=== PATIENT | female | born 1950 | race Caucasian/White ===

== ENCOUNTER → 2016-07-22 | Outpatient (CLI) | payer MEDICARE, OTHER ==
[~2016-07-22] MED LIST: ASPI81TA82 PO; CO Q100C9 OR; FISH1000 PO; SIMV80TA OR; TAB-TAB PO
[2016-07-22 09:08] LABS: HEMATOCRIT 41.4 % (35.0-46.0); MEAN CELL VOLUME 94.6 FL (80.0-100.0); MEAN CORPUSCULAR HEMOGLOBIN 31.4 PG (27.0-34.0); MEAN CORPUSCULAR HGB CONC 33.2 % (32.0-36.0); PLATELET COUNT 226 TH/MM3 (150-450); RED BLOOD COUNT 4.38 MIL/MM3 (4.00-5.30); RED CELL DISTRIBUTION WIDTH 13.4 % (11.6-17.2); REVIEW FLAG FINAL; WHITE BLOOD COUNT 4.2 TH/MM3 (4.0-11.0)
[2016-07-22 09:51] LABS: ALKALINE PHOSPHATASE 50 U/L (45-117); ALT (GPT) 26 U/L (10-53); ANION GAP 8 MEQ/L (5-15); AST (GOT) 20 U/L (15-37); BICARBONATE 29.5 MEQ/L (21.0-32.0); BLOOD UREA NITROGEN 23 MG/DL (7-18); CHLORIDE 104 MEQ/L (98-107); GLOMERULAR FILTRATION RATE 66 ML/MIN (>89); GLUCOSE,FASTING 116 MG/DL (74-99); HDL CHOLESTEROL 63.8 MG/DL (40.0-60.0); LDL CHOLESTEROL 114 MG/DL (0-99); POTASSIUM 5.2 MEQ/L (3.5-5.1); SODIUM (NA) 141 MEQ/L (136-145); TOTAL BILIRUBIN ADULT 0.5 MG/DL (0.2-1.0)
[2016-07-22 11:15] LABS: BACTERIA, URINE OCC /hpf; BLOOD, URINE NEG (NEG); GLUCOSE,URINE NEG (NEG); KETONE, URINE NEG (NEG); NITRITE,URINE NEG (NEG); SQUAMOUS EPITHELIAL CELL URINE 4 /hpf (0-5); URINE COLOR YELLOW (YELLW/STRAW)
== END ==
LOC: PLAB 07:04
PROVIDERS: ATTEND General Practice
DX: E78.00 Pure hypercholesterolemia, unspecified (principal); I10 Essential (primary) hypertension
CPT/HCPCS: 36415; 80053; 80061; 81001; 84443; 85027

== ENCOUNTER → 2016-08-08 | Outpatient (CLI) | payer MEDICARE, OTHER ==
--- NOTE | 2016-08-09 17:51 | EKG ---
Date Performed: 08/08/2016 Time Performed: 16:16:42 PTAGE: 66 years EKG: Sinus rhythm WITH SINUS ARRHYTHMIA NORMAL ECG NO PREVIOUS TRACING DOCTOR: Cheryl Purcell Interpretating Date/Time 08/09/2016 17:49:42
== END ==
LOC: HCAV 15:39
PROVIDERS: ATTEND General Practice
DX: I49.8 Other specified cardiac arrhythmias (principal)
CPT/HCPCS: 93005

== ENCOUNTER 2016-10-11 07:22 | Emergency (ER) | payer OTHER, MEDICARE ==
[~2016-10-11] VITALS: Ht 170.2 cm; Wt 77.0 kg
[2016-10-11 07:28] VITALS: BP 172/88; PULSE 61; RESP 19; TEMP 97.8; O2SAT 95
[2016-10-11] MEDS ORDERED: LIDOCAINE HCL 1% 50 ML VIAL INFIL ONE (07:30)
[2016-10-11] MEDS ORDERED: TETANUS/DIPHTHERIA TOXOID ADULT 0.5 ML VIAL IM ONE (07:30)
[2016-10-11] MEDS ORDERED: oxyCODONE/ACETAMINOPHEN 5 MG/325 MG TAB PO ONE (07:30)
--- NOTE | 2016-10-11 07:31 | PD ---
HPI Chief Complaint: Fall Time Seen by Provider: 07:26 Travel History International Travel<30 days: No Contact w/Intl Traveler<30days: No History of Present Illness HPI This is a 66-year-old female who was walking to work this morning when she tripped and fell on the concrete. She hit her head. She did not lose consciousness. She has a headache on the left side of her head, constant, moderate severity. She did not vomit. She is also reporting moderate severity left shoulder pain, constant, with difficulty moving her shoulder. She has some paresthesias in her left hand. She says she takes a baby aspirin every day. 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) Immunizations Current: No Tubal Ligation: Yes Past Surgical History Appendectomy: Yes Oral Surgery: Yes (TEETH EXTRACTION) Social History Alcohol Use: No Tobacco Use: No Substance Use: No Allergies-Medications (Allergen,Severity, Reaction): Coded Allergies: No Known Allergies (Verified , 10/11/16) Reported Meds & Prescriptions Reported Meds & Active Scripts Active Reported Multi Vitamin Daily (Multiple Vitamin) 1 Tab Tab Co Q 10 (Coenzyme Q10 (Ubidecarenone)) 100 Mg Cap Fish Oil + D3 (Fish Oil-Cholecalciferol) 1,200-1,000 Mg-Unit Cap 1 Cap PO DAILY Simvastatin 20 Mg Tab 20 Mg PO DAILY Metoprolol Tartrate 25 Mg Tab 25 Mg PO DAILY Aspirin 81 Mg Chew 81 Mg CHEW DAILY Review of Systems Except as stated in HPI: all other systems reviewed are Neg Physical Exam Narrative GENERAL:Well appearing, no acute distress SKIN: 4 cm laceration along the left forehead extending into the left eyebrow HEAD: Atraumatic. Normocephalic. EYES: Pupils equal and round. No injection or drainage. ENT: Moist mucous membranes NECK: Trachea midline. CARDIOVASCULAR: Regular rate and rhythm. No murmur appreciated. 2+ left radial pulse. RESPIRATORY: Clear to auscultation. Breath sounds equal bilaterally. GASTROINTESTINAL: Abdomen soft, non-tender, nondistended. MUSCULOSKELETAL: Tender to palpation over the left proximal humerus, unable to range the glenohumeral joint without severe pain. NEUROLOGICAL: Awake and alert. No obvious cranial nerve deficits. Moving all extremities. Sensation and motor intact in the left median, ulnar and radial distribution of the left forearm PSYCHIATRIC: Appropriate mood and affect; insight and judgment normal. Data Data Last Documented VS Vital Signs Date Time Temp Pulse Resp B/P Pulse Ox O2 Delivery O2 Flow Rate FiO2 10/11/16 09:40 84 18 159/84 99 Room Air 10/11/16 07:[address] Brain W/O Iv Contrast(Rout) (10/11/16 ) Shoulder, Limited(2vws) (10/11/16 ) Humerus (Min 2vws) (10/11/16 ) Oxycodone-Acetamin 5-325 Mg (Percocet (10/11/16 07:30) Lidocaine 1% Inj (50 Ml) (Xylocaine 1% I (10/11/16 07:30) Tetanus/Diphtheria Tox Adult (Tetanus/Di (10/11/16 07:30) Ct Cerv Spine W/O Contrast (10/11/16 ) Sling Cradle Arm (10/11/16 ) Ibuprofen (Motrin) (10/11/16 09:45) Splint Or Brace Apply/Monitor (10/11/16 09:31) MDM Medical Decision Making Medical Screen Exam Complete: Yes Emergency Medical Condition: Yes Interpretation(s) Afebrile, no tachycardia, hypertensive Last 24 hours Impressions Shoulder X-Ray 10/11/16 0000 Signed Impressions: Service Date/Time: Tuesday, October 11, 2016 08:03 - CONCLUSION: Slightly impacted and minimally displaced humeral head/neck fracture Marv Segura MD Humerus X-Ray 10/11/16 0000 Signed Impressions: Service Date/Time: Tuesday, October 11, 2016 08:09 - CONCLUSION: Proximal humeral neck fracture Marv Segura MD Head CT 10/11/16 0000 Signed Impressions: Service Date/Time: Tuesday, October 11, 2016 07:50 - CONCLUSION: 1. Left frontal scalp soft tissue swelling. No fracture or acute intracranial abnormality is identified. 2. Nonacute findings include mild atrophy and periventricular white matter low attenuation characteristic of chronic microvascular ischemia. Marv Herrera MD Cervical Spine CT 10/11/16 0000 Signed Impressions: Service Date/Time: Tuesday, October 11, 2016 07:50 - CONCLUSION: No acute bony injury in the cervical spine Marv Segura MD Differential Diagnosis Humeral neck fracture, humeral head fracture, shoulder dislocation, intracranial hemorrhage, cervical spine fracture Narrative Course This is a 66-year-old female who presents to the emergency department with left shoulder pain and a laceration following a mechanical fall. Patient is on aspirin. CT of the head and cervical spine were obtained that she had some paresthesias in her left hand. Both CTs were reassuring. X-ray demonstrates a fracture of the proximal humerus. She is placed in a sling and swath and asked to follow up with orthopedics as an outpatient. Procedures Procedure Narrative LACERATION LOCATION: Left forehead LENGTH: 5 cm NUMBER OF STITCHES/MAYE: 11 REPAIR: The area of the laceration was prepped with Betadine and sterilely draped. The laceration was infiltrated with 1% lidocaine. The wound was copiously irrigated and explored without evidence of foreign body, tendon injury or neurovascular injury. The wound was closed using 6-0 Ethilon. This was a single layer repair. A sterile dressing was applied. The patient was advised to keep the dressing clean and dry. Patient tolerated the procedure well. Diagnosis Primary Impression: Proximal humerus fracture Qualified Code: S42.295A - Other closed nondisplaced fracture of proximal end of left humerus, initial encounter Additional Impression: Laceration of forehead Qualified Code: S01.81XA - Laceration of forehead, initial encounter Ref[facility]: [facility] Patient Instructions: General Instructions Additional Instructions: If you develop fevers, redness, swelling, or discharge from your wound return to the emergency room. Keep your wound dry for 24 hours. After that time, wash gently with warm soap and water. Do not use peroxide. Do not soak in baths or go swimming. Have your sutures removed in 5-7 days. Keep your left arm in a sling and swath. If you develop increasing numbness, weakness, severe pain or coolness of your hand return to the emergency department immediately. Follow-up with orthopedics as soon as possible. Med/Other Pt SpecificInfo: Prescription(s) given Scripts Oxycodone-Acetaminophen (Percocet)5-325 mg Tab1 Tab PO Q6H PRN (PAIN) #14 TAB Ref 0 Prov:Elizabeth Nicholas MD 10/11/16 Disposition: 01 DISCHARGE HOME Condition: Stable Elizabeth Nicholas MD Oct 11, 2016 07:31
[2016-10-11] MEDS ORDERED: ASPI81CH CHEW (07:37)
[2016-10-11] MEDS ORDERED: MULT1TAB46 (07:37)
[2016-10-11] MEDS ORDERED: FISHCAP4 PO (07:37)
[2016-10-11] MEDS ORDERED: CO Q100C9 (07:37)
[2016-10-11] MEDS ORDERED: METO25TA3 PO (07:37)
[2016-10-11] MEDS ORDERED: SIMV20TA PO (07:37)
--- NOTE | 2016-10-11 09:15 | RADRPT ---
EXAM DATE/TIME: 10/11/2016 07:50 [facility] COMPARISON: No previous studies available for comparison. INDICATIONS : Trauma. Fall. RADIATION DOSE: 26.41 CTDIvol (mGy) MEDICAL HISTORY : Munier's disease. SURGICAL HISTORY : Appendectomy. Tubal ligation. ENCOUNTER: Initial ACUITY: 1 day PAIN SCALE: 2/10 LOCATION: neck TECHNIQUE: Volumetric scanning of the cervical spine was performed. Multiplanar reconstructions in the sagittal, coronal and oblique axial planes were performed. Using automated exposure control and adjustment o f the mA and/or kV according to patient size, radiation dose was kept as low as reasonably achievable to obtain optimal diagnostic quality images. DICOM format image data is available electronically f or review and comparison. FINDINGS: The cervical spine alignment is satisfactory. There is no evidence of cervical spine fracture. No bon y canal or foraminal compromise is identified. There is mild degenerative change with small predomina ntly ventral endplate osteophytes most conspicuous at C5-6 and C6-7 interspaces. There are moderate a rthritic changes involving the posterior facet joints, generally worse on the right than the left. Th ere is no evidence of paraspinal hematoma. There are fibrotic changes in the visualized lung apices. CONCLUSION: No acute bony injury in the cervical spine Marv Segura MD on October 11, 2016 at 9:11 Board Certified Radiologist. This report was verified electronically.
--- NOTE | 2016-10-11 09:21 | RADRPT ---
EXAM DATE/TIME: 10/11/2016 07:50 [facility] COMPARISON: No previous studies available for comparison. INDICATIONS : Trauma. Fall. Left forehead laceration. RADIATION DOSE: 63.10 CTDIvol (mGy) MEDICAL HISTORY : Munier's disease. SURGICAL HISTORY : Appendectomy. Tubal ligation. ENCOUNTER: Initial ACUITY: 1 day PAIN SCALE: 4/10 LOCATION: cranial TECHNIQUE: Multiple contiguous axial images were obtained of the head. Using automated exposure control and adj ustment of the mA and/or kV according to patient size, radiation dose was kept as low as reasonably a chievable to obtain optimal diagnostic quality images. DICOM format image data is available electro nically for review and comparison. FINDINGS: CEREBRUM: There is mild cerebral atrophy. Ventricles are normal. There is mild to moderate periventricular whit e matter low-attenuation. No evidence of midline shift, mass lesion, hemorrhage or acute infarction. No extra-axial fluid collections are seen. POSTERIOR FOSSA: The cerebellum and brainstem demonstrate no acute finding. The 4th ventricle is midline. The cerebe llopontine angle is unremarkable. EXTRACRANIAL: There is left frontal scalp soft tissue swelling. SKULL: The calvaria is intact. No evidence of skull fracture. CONCLUSION: 1. Left frontal scalp soft tissue swelling. No fracture or acute intracranial abnormality is identifi ed. 2. Nonacute findings include mild atrophy and periventricular white matter low attenuation characteri stic of chronic microvascular ischemia. Marv Herrera MD on October 11, 2016 at 9:14 Board Certified Radiologist. This report was verified electronically.
--- NOTE | 2016-10-11 09:29 | RADRPT ---
EXAM DATE/TIME: 10/11/2016 08:03 [facility] COMPARISON: No previous studies available for comparison. INDICATIONS : Pain in left shoulder post fall this am. MEDICAL HISTORY : None. SURGICAL HISTORY : None. ENCOUNTER: Initial ACUITY: 1 day PAIN SCORE: 10/10 LOCATION: Left shoulder FINDINGS: There is a minimally displaced slightly impacted humeral head and neck fracture with disruption of th e cortex adjacent to the inferior aspect of the greater tuberosity area the adjacent clavicle and rib s appear grossly intact. CONCLUSION: Slightly impacted and minimally displaced humeral head/neck fracture Marv Segura MD on October 11, 2016 at 9:27 Board Certified Radiologist. This report was verified electronically.
--- NOTE | 2016-10-11 09:30 | RADRPT ---
EXAM DATE/TIME: 10/11/2016 08:09 [facility] COMPARISON: No previous studies available for comparison. INDICATIONS : Pain in left shoulder area post fall thia am, unable to rotate hand. MEDICAL HISTORY : None. SURGICAL HISTORY : None. ENCOUNTER: Initial ACUITY: 1 day PAIN SCORE: 10/10 LOCATION: Left shoulder FINDINGS: There is a minimally displaced slightly impacted fracture of the proximal humeral neck. The remainder of the humerus is intact. CONCLUSION: Proximal humeral neck fracture Marv Segura MD on October 11, 2016 at 9:28 Board Certified Radiologist. This report was verified electronically.
[2016-10-11 09:40] VITALS: BP 159/84; PULSE 84; RESP 18; O2SAT 99
[2016-10-11] MEDS ORDERED: IBUPROFEN 600 MG TAB PO ONE (09:45)
[2016-10-11] MEDS ORDERED: PERC5TAB12 PO (09:48)
== END 2016-10-11 10:10 | disposition home or self-care (01) ==
LOC: PHED 07:22
DX: S42.295A Other nondisplaced fracture of upper end of left humerus, initial encounter for closed fracture (principal); S01.81XA Laceration without foreign body of other part of head, initial encounter; W01.0XXA Fall on same level from slipping, tripping and stumbling without subsequent striking against object, initial encounter; Y93.01 Activity, walking, marching and hiking; Z23 Encounter for immunization
CPT/HCPCS: 12013; 70450; 72125; 73030; 73060; 90471; 90714

== ENCOUNTER → 2017-02-04 | Outpatient (CLI) | payer MEDICARE, OTHER ==
[~2017-02-04] MED LIST changes: +ASPI-516 CHEW; -ASPI81TA82 PO; +CO Q100C9; -CO Q100C9 OR; -FISH1000 PO; +FISHCAP4 PO; +METO25TA3 PO; +MULT1TAB46; +PERC5TAB12 PO; +SIMV20TA PO; -SIMV80TA OR; -TAB-TAB PO
[2017-02-04 10:08] LABS: AUTOMATED NEUTROPHIL # 2.6 TH/MM3 (1.8-7.7); BASOPHIL % 0.3 % (0.0-2.0); EOSINOPHIL # 0.2 TH/MM3 (0-0.4); EOSINOPHIL % 2.5 % (0.0-4.0); HEMATOCRIT 43.1 % (35.0-46.0); HEMO FLAGS DIFF FINAL; LYMPH % 44.3 % (9.0-44.0); LYMPHOCYTE # 2.7 TH/MM3 (1.0-4.8); MEAN CELL VOLUME 95.8 FL (80.0-100.0); MEAN CORPUSCULAR HEMOGLOBIN 32.2 PG (27.0-34.0); MEAN CORPUSCULAR HGB CONC 33.7 % (32.0-36.0); MONO % 10.6 % (0.0-8.0); NEUT % 42.3 % (16.0-70.0); PLATELET COUNT 265 TH/MM3 (150-450); RED CELL DISTRIBUTION WIDTH 13.5 % (11.6-17.2); WHITE BLOOD COUNT 6.2 TH/MM3 (4.0-11.0)
[2017-02-04 10:12] LABS: BACTERIA, URINE FEW /hpf; BLOOD, URINE TRACE (NEG); GLUCOSE,URINE NEG (NEG); KETONE, URINE NEG (NEG); MUCUS URINE FEW /lpf (OCC); NITRITE,URINE NEG (NEG); PH, URINE 5.5 (5.0-8.5); SQUAMOUS EPITHELIAL CELL URINE 23 /hpf (0-5); TRANSITIONAL EPI CELLS, URINE 3 /hpf; URINE COLOR YELLOW (YELLW/STRAW)
[2017-02-04 10:31] LABS: ANION GAP 4 MEQ/L (5-15); AST (GOT) 10 U/L (15-37); BICARBONATE 31.5 MEQ/L (21.0-32.0); BLOOD UREA NITROGEN 20 MG/DL (7-18); CHLORIDE 104 MEQ/L (98-107); GLOMERULAR FILTRATION RATE 79 ML/MIN (>89); GLUCOSE,FASTING 90 MG/DL (74-99); POTASSIUM 4.9 MEQ/L (3.5-5.1); SODIUM (NA) 139 MEQ/L (136-145)
[2017-02-04 10:42] LABS: ALKALINE PHOSPHATASE 53 U/L (45-117); ALT (GPT) 23 U/L (10-53); HDL CHOLESTEROL 67.7 MG/DL (40.0-60.0); LDL CHOLESTEROL 163 MG/DL (0-99); TOTAL BILIRUBIN ADULT 0.3 MG/DL (0.2-1.0)
== END ==
LOC: PLAB 07:34
PROVIDERS: ATTEND General Practice
DX: I10 Essential (primary) hypertension (principal); E78.00 Pure hypercholesterolemia, unspecified; F41.9 Anxiety disorder, unspecified
CPT/HCPCS: 36415; 80053; 80061; 81001; 84443; 85025

== ENCOUNTER → 2017-08-18 | Outpatient (CLI) | payer MEDICARE, OTHER ==
[2017-08-18 10:20] LABS: BACTERIA, URINE RARE /hpf; BILIRUBIN, URINE NEG (NEG); BLOOD, URINE NEG (NEG); GLUCOSE,URINE NEG (NEG); KETONE, URINE NEG (NEG); NITRITE,URINE NEG (NEG); SQUAMOUS EPITHELIAL CELL URINE 5 /hpf (0-5); URINE COLOR YELLOW (YELLW/STRAW); URINE LEUKOCYTE ESTERASE TRACE (NEG)
[2017-08-18 10:21] LABS: AUTOMATED NEUTROPHIL # 1.6 TH/MM3 (1.8-7.7); BASOPHIL % 0.6 % (0.0-2.0); EOSINOPHIL # 0.1 TH/MM3 (0-0.4); EOSINOPHIL % 3.1 % (0.0-4.0); HEMATOCRIT 40.5 % (35.0-46.0); HEMOGLOBIN 13.8 GM/DL (11.6-15.3); LYMPH % 47.3 % (9.0-44.0); MEAN CELL VOLUME 95.6 FL (80.0-100.0); MEAN CORPUSCULAR HEMOGLOBIN 32.6 PG (27.0-34.0); MEAN CORPUSCULAR HGB CONC 34.1 % (32.0-36.0); MEAN PLATELET VOLUME 9.5 FL (7.0-11.0); MONO % 10.4 % (0.0-8.0); MONOCYTE # 0.4 TH/MM3 (0-0.9); NEUT % 38.6 % (16.0-70.0); PLATELET COUNT 232 TH/MM3 (150-450); RED BLOOD COUNT 4.24 MIL/MM3 (4.00-5.30); RED CELL DISTRIBUTION WIDTH 13.4 % (11.6-17.2); WHITE BLOOD COUNT 4.3 TH/MM3 (4.0-11.0)
[2017-08-18 10:37] LABS: ALBUMIN 3.7 GM/DL (3.4-5.0); AST (GOT) 15 U/L (15-37); BICARBONATE 25.6 MEQ/L (21.0-32.0); BLOOD UREA NITROGEN 21 MG/DL (7-18); CALCIUM 8.7 MG/DL (8.5-10.1); CHLORIDE 105 MEQ/L (98-107); CREATININE 0.82 MG/DL (0.50-1.00); GLOMERULAR FILTRATION RATE 70 ML/MIN (>89); GLUCOSE,FASTING 100 MG/DL (74-99); SODIUM (NA) 139 MEQ/L (136-145)
[2017-08-18 10:50] LABS: ALKALINE PHOSPHATASE 44 U/L (45-117); ALT (GPT) 21 U/L (10-53); CHOLESTEROL 194 MG/DL (120-200); CHOLESTEROL/ HDL RATIO 3.11 RATIO; HDL CHOLESTEROL 62.3 MG/DL (40.0-60.0); LDL CHOLESTEROL 119 MG/DL (0-99); TOTAL BILIRUBIN ADULT 0.4 MG/DL (0.2-1.0); TOTAL PROTEIN 7.3 GM/DL (6.4-8.2); TRIGLYCERIDES 66 MG/DL (42-150)
== END ==
LOC: PLAB 07:40
PROVIDERS: ATTEND General Practice
DX: I10 Essential (primary) hypertension (principal); E78.00 Pure hypercholesterolemia, unspecified
CPT/HCPCS: 36415; 80053; 80061; 81001; 84443; 85025